=== PATIENT | female | born 1950 | race Caucasian/White ===

== ENCOUNTER → 2021-05-12 19:00 | Outpatient (BNVA) | payer MEDICARE, OTHER, SELFPAY | PROVIDERS: Family Provider Family Medicine; Visit Provider Nurse Practitioner | DX: J02.9 Acute pharyngitis, unspecified (principal) | CPT/HCPCS: 87880 ==

== ENCOUNTER 2022-11-26 19:54 | Emergency (ER) | payer MEDICARE, OTHER, SELFPAY ==
[2022-11-26 19:56] VITALS: BP 144/114; PULSE 111; RESP 16; TEMP 37.3; O2SAT 95; BMI 33.7
--- NOTE | 2022-11-26 20:09 | XRR_ITS ---
PROCEDURE INFORMATION: Exam: XR Chest Exam date and time: 11/26/2022 9:10 PM Age: 72 years old Clinical indication: Chest pressure; Patient HX: C/O chest pain. Hypertensive on monitor. ; Additional info: Cp TECHNIQUE: Imaging protocol: Radiologic exam of the chest. Views: 1 view. COMPARISON: No relevant prior studies available. FINDINGS: Lungs: Cardiomegaly and mild pulmonary vascular. Pleural spaces: Unremarkable. No pleural effusion. No pneumothorax. Heart/Mediastinum: See Lungs finding. Bones/joints: Unremarkable. XR/XR chest 1V portable [id number] IMPRESSION: Cardiomegaly and mild pulmonary vascular.
--- NOTE | 2022-11-26 20:09 | ECG_ITS ---
[facility] Test Date: 2022-11-26 Pat Name: Ara Decker Department: Room: Gender: Female Social Scientist: : 1950 Requested By: Tom Trejo Order Number: [id number] Mateus MD: Simon Scanlon M.D. Measurements Intervals [place] Rate: 89 P: 54 [place]: 145 QRS: 51 QRSD: 92 T: 67 QT: 365 QTc: 445 Interpretive Statements SINUS RHYTHM NONSPECIFIC T-WAVE ABNORMALITY No previous ECG available for comparison Electronically Signed On 11-27-2022 10:28:45 HAND HARDENER by Simon Scanlon M.D. [id number]
--- NOTE | 2022-11-26 20:17 | W.ED.CHESTPA ---
Documented by User: Bonilla Osorio MD 12/08/22 06:05 HPI - Chest Pain General: Chief Complaint: Chest Pain Stated Complaint: ELEVATED BP Time Seen by Provider: 11/26/22 20:16 History of Present Illness: Ms. Decker is a 72-year-old lady with history of hypertension and obesity presenting to the emergency department due to chest discomfort. She reports first noticing symptoms at rest approximately 4 PM today. She took aspirin at home full dose and symptoms were relieved. She did note this correlated with generalized malaise and elevated blood pressure well above her baseline. Currently still notes elevated blood pressure. Denies any other obvious changes in medication, diet, or causes identified. No other specific changes in health, exacerbating, or alleviating factors identified. Onset (ago): hour(s) Timing of current episode: episodic Prior episodes: No Onset: during rest Pain location: substernal Pain radiation: none Severity: moderate Quality: heaviness Relieving factors: nothing Exacerbating factors: nothing Associated symptoms: Reports no associated symptoms Treatment prior to arrival: aspirin Review of Systems General: Reports: 10 or more systems reviewed and unremarkable except in HPI and below PFSH ED PFSH: Medical History (Updated 12/08/22 @ 06:03 by Bonilla Osorio MD) HTN (hypertension) Surgical History (Updated 12/08/22 @ 06:03 by Bonilla Osorio MD) No significant past surgical history Social History Smoking and tobacco status: never smoked Physical Exam Const: COMMON NORMALS: alert GENERAL APPEARANCE: cooperative and well developed HENMT: COMMON NORMALS: normocephalic and atraumatic HEAD & SCALP: normocephalic and atraumatic Eye: COMMON NORMALS: conjunctivae normal CONJUNCTIVA: Yes conjunctivae normal SCLERA: sclerae normal Neck/C-Spine: COMMON NORMALS: supple GENERAL: Yes trachea midline Resp: COMMON NORMALS: clear to auscultation bilaterally EFFORT & INSPECTION: Yes able to speak in complete sentences AUSCULTATION: clear to auscultation bilaterally Cardio: COMMON NORMALS: regular rate and regular rhythm RATE: regular rate RHYTHM: regular rhythm GI: COMMON NORMALS: Soft to palpation PALPATION: Yes Soft to palpation and No Tenderness to palpation present (GI) Extremity: GENERAL: Yes normal exam except as noted and No edema Neuro: COMMON NORMALS: moves all extremities SENSORIUM/ORIENTATION: Yes alert and No Orientation impaired Psych: COMMON NORMALS: mental status grossly normal and Normal thought process present THOUGHT PROCESS: Normal thought process present Course Vital Signs: Vital signs: Vital Signs Temperature 99.1 F 11/26/22 19:56 Pulse Rate 91 11/26/22 21:51 Respiratory Rate 16 11/26/22 21:51 Blood Pressure 189/69 11/26/22 21:51 Pulse Oximetry 95 11/26/22 21:51 Oxygen Delivery Me thod 11/26/22 21:51 MDM - Chest Pain Medical Decision Making 72-year-old lady presented to the emergency [place] due to chest discomfort that is improved associated with high blood pressure without specific known provoking event. Exam as above. EKG shows sinus rhythm with nonspecific ST segment abnormalities, no STEMI. Labs with minimal leukocytosis, no other significant hematologic abnormality. Mild dehydration on metabolic panel. 2-hour delta troponin is negative. Negative viral studies. Chest x-ray negative for lobar consolidation or pneumothorax. There is cardiomegaly and mild pulmonary vascular congestion. Treated with hydralazine in the emergency department with improvement in blood pressure. Most likely cause of patient symptoms is unspecified chest pain. She is not low risk by heart score. The results of ED evaluation were discussed with the patient including plan for admission due to requirement for level of care not available if discharged to prevent significant worsening/deterioration. Patient agreeable with plan. Discussed with hospitalist service who was agreeable to admit patient. Patient presented here with chest pain along with hypertension she originally wanted to be admitted for a stress test family member came out and stated they no longer want to stay. I did go in and speak to her and her daughter her troponins and EKG here are normal I did inform her we could admit her still and do the stress test she states that she does not want to stay she feels much improved and would want to follow-up outpatient troponins were both normal I did speak to her at length we will get her cardiology follow-up informed her she has any more chest pain she is to return she understands and agrees to this plan. Medical Records I reviewed the patient's medical records. Lab Data I reviewed the patient's lab results. 11/26/22 20:47 11/26/22 20:47 Radiology Impressions Chest X-Ray 11/26/22 20:09 IMPRESSION: Cardiomegaly and mild pulmonary vascular. Laboratory Results WBC 10.6 10^3/uL (4.0-10.0) H 11/26/22 20:47 RBC 4.64 10^6/uL (4.1-5.3) 11/26/22 20:47 Hgb 13.4 g/dL (11.5-15.3) 11/26/22 20:47 Hct 40.1 % (37.0-47.0) 11/26/22 20:47 MCV 86.4 fl (81-99) 11/26/22 20:47 MCH 28.9 pg (28.0-34.0) 11/26/22 20:47 MCHC 33.4 g/dL (30.0-36.0) 11/26/22 20:47 RDW 13.0 % (12.1-15.1) 11/26/22 20:47 Plt Count 341 10^3/cmm (130-400) 11/26/22 20:47 MPV 10.0 fL (7.4-10.4) 11/26/22 20:47 Neut % (Auto) 60.1 % 11/26/22 20:47 Lymph % (Auto) 28.2 % 11/26/22 20:47 [place] % (Auto) 9.4 % 11/26/22 20:47 Eos % (Auto) 1.2 % 11/26/22 20:47 Baso % (Auto) 0.7 % 11/26/22 20:47 Neut # (Auto) 6.40 10^3/uL (1.8-7.7) 11/26/22 20:47 Lymph # (Auto) 3.0 10^3/uL (0.8-4.8) 11/26/22 20:47 [place] # (Auto) 1.0 10^3/uL (0.2-0.9) H 11/26/22 20:47 Eos # (Auto) 0.1 10^3/uL (0.0-0.8) 11/26/22 20:47 Baso # (Auto) 0.1 10^3/uL (0.0-0.1) 11/26/22 20:47 Nucleated RBC % (auto) 0 % 11/26/22 20:47 Nucleated RBCs # 0.0 /100WBC 11/26/22 20:47 PT 13.20 SECONDS (12.1-14.9) 11/26/22 20:47 INR 0.97 (0.8-1.2) 11/26/22 20:47 Sodium 131 mmol/L (136-145) L 11/26/22 20:47 Potassium 4.0 mmol/L (3.5-5.1) 11/26/22 20:47 Chloride 93 mmol/L (98-107) L 11/26/22 20:47 Carbon Dioxide 25 mmol/L (22-29) 11/26/22 20:47 Anion Gap 17.0 (5-19) 11/26/22 20:47 BUN 6 mg/dL (8-23) L 11/26/22 20:47 Creatinine 0.7 mg/dL (0.5-0.9) 11/26/22 20:47 GFR Calculation 82.7 mL/min (90-130) L 11/26/22 20:47 Glucose 117 mg/dL (65-115) H 11/26/22 20:47 Calculated Osmolality 271 mOsm/kg (285-295) L 11/26/22 20:47 Calcium 9.0 mg/dL (8.5-10.5) 11/26/22 20:47 Total Bilirubin 0.6 mg/dL (0.15-1.2) 11/26/22 20:47 AST 26 U/L (0-32) 11/26/22 20:47 ALT 33 U/L (0-33) 11/26/22 20:47 Alkaline Phosphatase 133 U/L (35-105) H 11/26/22 20:47 Troponin T Baseline 22 ng/L (0-10) H 11/26/22 20:47 Troponin T 120 Minute 11.89 ng/L (0-10) H 11/26/22 22:37 Delta Troponin T -10.11 ABS# (0-10) L 11/26/22 22:37 NT-Pro-B Natriuret Pep 94 pg/mL (0-125) 11/26/22 20:47 Total Protein 8.5 g/dL (6.6-8.7) 11/26/22 20:47 Albumin 4.2 g/dL (3.5-5.2) 11/26/22 20:47 Globulin 4.3 g/dL (1.3-4.6) 11/26/22 20:47 TSH 2.16 uIU/mL (0.27-4.20) 11/26/22 20:47 Influenza Type A Ag negative (Negative) 11/26/22 22:21 Influenza Type B Ag negative (Negative) 11/26/22 22:21 SARS-CoV-2 Ag (Rapid) negative (Negative) 11/26/22 22:21 Discharge Plan Discharge Patient Disposition: Home Clinical Impression: Chest pain Condition: Stable Prescriptions: No Action Unable to Assess amoxicillin 500 mg capsule 500 mg PO Q12H 7 Days Qty: 14 0RF Discharge Orders: Discharge ED (Routine); Ordered 11/26/22 Ordered By: Tom Trejo Referrals: Simon Scanlon M.D [Physician] - 1-3 days Star Hackett DO [Referring] - Discharge Diet: Advance as tolerated Discharge Activity: Resume usual activity Patient Instructions: Chest Pain (ED) Coding Level of Care Code ED Dissolver Operator for Chg Fwd Documented by User: Tom Trejo MD 11/26/22 23:39 HPI - Chest Pain General: Chief Complaint: Chest Pain Stated Complaint: ELEVATED BP Time Seen by Provider: 11/26/22 20:16 [facility] ED PFSH: Medical History (Updated 12/08/22 @ 06:03 by Bonilla Osorio MD) HTN (hypertension) Surgical History (Updated 12/08/22 @ 06:03 by Bonilla Osorio MD) No significant past surgical history Social History Smoking and tobacco status: never smoked Course Vital Signs: Vital signs: Vital Signs Temperature 99.1 F 11/26/22 19:56 Pulse Rate 91 11/26/22 21:51 Respiratory Rate 16 11/26/22 21:51 Blood Pressure 189/69 11/26/22 21:51 Pulse Oximetry 95 11/26/22 21:51 Oxygen Delivery Me thod 11/26/22 21:51 MDM - Chest Pain Medical Decision Making Patient presented here with chest pain along with hypertension she originally wanted to be admitted for a stress test family member came out and stated they no longer want to stay. I did go in and speak to her and her daughter her troponins and EKG here are normal I did inform her we could admit her still and do the stress test she states that she does not want to stay she feels much improved and would want to follow-up outpatient troponins were both normal I did speak to her at length we will get her cardiology follow-up informed her she has any more chest pain she is to return she understands and agrees to this plan. Lab Data 11/26/22 20:47 11/26/22 20:47 Radiology Impressions Chest X-Ray 11/26/22 20:09 IMPRESSION: Cardiomegaly and mild pulmonary vascular. Laboratory Results WBC 10.6 10^3/uL (4.0-10.0) H 11/26/22 20:47 RBC 4.64 10^6/uL (4.1-5.3) 11/26/22 20:47 Hgb 13.4 g/dL (11.5-15.3) 11/26/22 20:47 Hct 40.1 % (37.0-47.0) 11/26/22 20:47 MCV 86.4 fl (81-99) 11/26/22 20:47 MCH 28.9 pg (28.0-34.0) 11/26/22 20:47 MCHC 33.4 g/dL (30.0-36.0) 11/26/22 20:47 RDW 13.0 % (12.1-15.1) 11/26/22 20:47 Plt Count 341 10^3/cmm (130-400) 11/26/22 20:47 MPV 10.0 fL (7.4-10.4) 11/26/22 20:47 Neut % (Auto) 60.1 % 11/26/22 20:47 Lymph % (Auto) 28.2 % 11/26/22 20:47 [place] % (Auto) 9.4 % 11/26/22 20:47 Eos % (Auto) 1.2 % 11/26/22 20:47 Baso % (Auto) 0.7 % 11/26/22 20:47 Neut # (Auto) 6.40 10^3/uL (1.8-7.7) 11/26/22 20:47 Lymph # (Auto) 3.0 10^3/uL (0.8-4.8) 11/26/22 20:47 [place] # (Auto) 1.0 10^3/uL (0.2-0.9) H 11/26/22 20:47 Eos # (Auto) 0.1 10^3/uL (0.0-0.8) 11/26/22 20:47 Baso # (Auto) 0.1 10^3/uL (0.0-0.1) 11/26/22 20:47 Nucleated RBC % (auto) 0 % 11/26/22 20: Nucleated RBCs # 0.0 /100WBC 11/26/22 20:47 PT 13.20 SECONDS (12.1-14.9) 11/26/22 20:47 INR 0.97 (0.8-1.2) 11/26/22 20:47 Sodium 131 mmol/L (136-145) L 11/26/22 20:47 Potassium 4.0 mmol/L (3.5-5.1) 11/26/22 20:47 Chloride 93 mmol/L (98-107) L 11/26/22 20:47 Carbon Dioxide 25 mmol/L (22-29) 11/26/22 20:47 Anion Gap 17.0 (5-19) 11/26/22 20:47 BUN 6 mg/dL (8-23) L 11/26/22 20:47 Creatinine 0.7 mg/dL (0.5-0.9) 11/26/22 20:47 GFR Calculation 82.7 mL/min (90-130) L 11/26/22 20:47 Glucose 117 mg/dL (65-115) H 11/26/22 20:47 Calculated Osmolality 271 mOsm/kg (285-295) L 11/26/22 20:47 Calcium 9.0 mg/dL (8.5-10.5) 11/26/22 20:47 Total Bilirubin 0.6 mg/dL (0.15-1.2) 11/26/22 20:47 AST 26 U/L (0-32) 11/26/22 20:47 ALT 33 U/L (0-33) 11/26/22 20:47 Alkaline Phosphatase 133 U/L (35-105) H 11/26/22 20:47 Troponin T Baseline 22 ng/L (0-10) H 11/26/22 20:47 Troponin T 120 Minute 11.89 ng/L (0-10) H 11/26/22 22:37 Delta Troponin T -10.11 ABS# (0-10) L 11/26/22 22:37 NT-Pro-B Natriuret Pep 94 pg/mL (0-125) 11/26/22 20:47 Total Protein 8.5 g/dL (6.6-8.7) 11/26/22 20:47 Albumin 4.2 g/dL (3.5-5.2) 11/26/22 20:47 Globulin 4.3 g/dL (1.3-4.6) 11/26/22 20:47 TSH 2.16 uIU/mL (0.27-4.20) 11/26/22 20:47 Influenza Type A Ag negative (Negative) 11/26/22 22:21 Influenza Type B Ag negative (Negative) 11/26/22 22:21 SARS-CoV-2 Ag (Rapid) negative (Negative) 11/26/22 22:21 Discharge Plan Discharge Patient Disposition: Home Clinical Impression: Chest pain Condition: Stable Prescriptions: No Action Unable to Assess amoxicillin 500 mg capsule 500 mg PO Q12H 7 Days Qty: 14 0RF Discharge Orders: Discharge ED (Routine); Ordered 11/26/22 Ordered By: Tom Trejo Referrals: Simon Scanlon M.D [Physician] - 1-3 days Star Hackett DO [Referring] - Discharge Diet: Advance as tolerated Discharge Activity: Resume usual activity Patient Instructions: Chest Pain (ED) Coding Level of Care Code ED Dissolver Operator for Beléng Nadja
[2022-11-26 20:52] VITALS: BP 194/95; PULSE 92; RESP 16; O2SAT 94
[2022-11-26 20:56] LABS: Basophils # 0.1 10^3/uL (0.0-0.1); Basophils % 0.7 %; Eosinophils # 0.1 10^3/uL (0.0-0.8); Eosinophils % 1.2 %; Hematocrit 40.1 % (37.0-47.0); Hemoglobin 13.4 g/dL (11.5-15.3); Lymphocytes % 28.2 %; Mean Corpuscular HGB Conc 33.4 g/dL (30.0-36.0); Mean Corpuscular Hemoglobin 28.9 pg (28.0-34.0); Mean Corpuscular Volume 86.4 fl (81-99); Monocytes % 9.4 %; Neutrophils % 60.1 %; Nucleated Red Blood Cells % 0 %; Platelet Count 341 10^3/cmm (130-400); Red Blood Count 4.64 10^6/uL (4.1-5.3); White Blood Count 10.6 10^3/uL (4.0-10.0)
[2022-11-26 21:07] LABS: INR 0.97 (0.8-1.2)
[2022-11-26 21:17] LABS: Troponin(5th) Baseline 22 ng/L (0-10)
[2022-11-26 21:27] LABS: Albumin Level 4.2 g/dL (3.5-5.2); Alkaline Phosphatase 133 U/L (35-105); Blood Urea Nitrogen 6 mg/dL (8-23); Carbon Dioxide 25 mmol/L (22-29); Chloride 93 mmol/L (98-107); Creatinine Clr Calc Pharmacy 71.3868; Globulin 4.3 g/dL (1.3-4.6); Glomerular Filtration Rate 82.7 mL/min (90-130); Glucose 117 mg/dL (65-115); Osmolality Calculated 271 mOsm/kg (285-295); Sodium 131 mmol/L (136-145); Thyroid Stimulating Hormone 2.16 uIU/mL (0.27-4.20); Total Bilirubin 0.6 mg/dL (0.15-1.2); Total Protein 8.5 g/dL (6.6-8.7)
[2022-11-26] MEDS: hyDRALAzine 20 mg/mL INJ 1 mL 10 MG IVP (21:28)
[2022-11-26 21:29] VITALS: BP 189/92; PULSE 95; RESP 16; O2SAT 96
[2022-11-26 21:51] VITALS: BP 189/69; PULSE 91; RESP 16; O2SAT 95
[2022-11-26 21:55] LABS: Alanine Aminotransferase 33 U/L (0-33); Aspartate Amino Transferase 26 U/L (0-32)
[2022-11-26 22:08] LABS: NT Pro B Type Natriuretic Pept 94 pg/mL (0-125)
--- NOTE | 2022-11-26 22:09 | ECG_ITS ---
[facility] Test Date: 2022-11-26 Pat Name: Ara Decker Department: Room: Gender: Female Oncology Physician: : 1950 Requested By: Tom Trejo Order Number: [id number] Mateus MD: Simon Scanlon M.D. Measurements Intervals [place] Rate: 94 P: 56 [place]: 141 QRS: 48 QRSD: 96 T: 39 QT: 368 QTc: 461 Interpretive Statements SINUS RHYTHM ST DEVIATION AND MODERATE T-WAVE ABNORMALITY, CONSIDER LATERAL ISCHEMIA [-0.1+ mV T-WAVE IN I/aVL/V5/V6] Compared to ECG 11/26/2022 20:49:20 Possible ischemia now present T-wave abnormality still present Electronically Signed On 11-27-2022 10:30:31 CHIEF OPERATIONS OFFICER by Simon Scanlon M.D. [id number]
[2022-11-26] MEDS: sodium chloride 0.9% 500 ML 999 ML IV (22:20)
[2022-11-26 23:04] LABS: Influenza A by IFA negative (Negative); Influenza B by IFA negative (Negative); SARS Covid-2 Antigen negative (Negative)
[2022-11-26 23:13] LABS: Troponin 5 2HR 11.89 ng/L (0-10)
[2022-11-26 23:14] LABS: Troponin 5 2HR Delta -10.11 ABS# (0-10)
--- NOTE | 2022-11-27 09:28 | DCPLANNER ---
Addendum entered by Annamaria El 01/22/23 08:10: Patient had a follow up appointment scheduled with heart care - patient did not attend appointment. Addendum entered by Annamaria El 12/03/22 10:56: Patient has a follow up appointment scheduled for Saturday, January 14, 2023 at 1:[address] Scanlon at [facility]. Clinic will call patient with appointment information. Original Note: lodging facilities manager had message to schedule a follow up appointment for patient with cardiology. lodging facilities manager sent patients information to the front office staff at [facility]. Patients information will be printed and reviewed. Clinic will call patient with appointment information.
== END 2022-11-27 00:05 | disposition home or self-care (01) ==
PROVIDERS: Emergency Medicine; Emergency Provider Emergency Medicine
DX: R07.9 Chest pain, unspecified (principal); Z20.822 Contact with and (suspected) exposure to COVID-19
CPT/HCPCS: 71045; 80053; 83880; 84443; 84484; 85025; 85610; 87426; 87804; 93005; 96361; 96374; 99285; J0360; J7040